=== PATIENT | female | born 1960 | race Caucasian/White ===

== ENCOUNTER 2020-07-19 10:31 | Emergency (ER) | payer BC ==
[~2020-07-19] VITALS: Ht 149.9 cm; Wt 77.4 kg
[2020-07-19] MEDS ORDERED: IOHEXOL 350 MG/ML 100 ML VIAL. IV ONE (11:00)
[2020-07-19 11:03] LABS: BASO # 0.1 x10^3/uL (0.0-0.2); BASO % 0 % (0-3); EOS # 0.1 x10^3/uL (0.0-0.7); EOS % 0 % (0-3); HEMATOCRIT 27.7 % (36.0-47.0); HEMOGLOBIN 8.9 g/dL (12.0-15.5); LYMPH # 1.7 x10^3/uL (1.0-4.8); LYMPH % 9 % (24-48); MEAN CORPUSCULAR HEMOGLOBIN 28 pg (25-35); MEAN CORPUSCULAR HGB CONC 32 g/dL (31-37); MEAN CORPUSCULAR VOLUME 85 fL (79-100); MONO # 1.8 x10^3/uL (0.0-1.1); MONO % 10 % (0-9); NEUT # 15.1 x10^3uL (1.8-7.7); NEUT % 81 % (31-73); PLATELET COUNT 448 x10^3/uL (140-400); RED BLOOD COUNT 3.24 x10^6/uL (3.50-5.40); WHITE BLOOD COUNT 18.7 x10^3/uL (4.0-11.0)
[2020-07-19 11:10] LABS: CALCIUM 8.8 mg/dL (8.5-10.1); CREATININE 1.3 mg/dL (0.6-1.0); GFR 41.9; POTASSIUM 3.1 mmol/L (3.5-5.1)
--- NOTE | 2020-07-19 11:10 | RAD ---
EXAM: CHEST AP ONLY INDICATION: Reason: shob / Spl. Instructions: / History: . TECHNIQUE: Single view COMPARISON: None FINDINGS: The heart size is upper normal. The great vessels appear unremarkable. There is no hilar or mediastinal mass. Lungs are low in volume and show patchy bilateral airspace opacities, subpleral sparing There is no pleural effusion or pneumothorax. There are no significant osseous abnormalities. IMPRESSION: 1. Bilateral patchy airspace opacities with subpleural sparing. This is a nonspecific appearance and could reflect pulmonary hemorrhage, edema, atypical infection, or infarction (such as from embolic phenomenon). 2. If there is a high index of suspicion for pulmonary emboli, CT pulmonary angiography could be pursued in further evaluation. FOR INTERNAL CODING PURPOSES Critical result: Findings discussed with ESTUARDO BRO at 07/19/2020 11:06 AM. RESULT CODE: (C) . Electronically signed by: Vinay Josue MD (07/19/2020 11:07 AM) [id number]
[2020-07-19] MEDS ORDERED: FUROSEMIDE 40 MG/4 ML VIAL IVP ONE ×2 (11:15→12:30)
[2020-07-19] MEDS ORDERED: SUCCINYLCHOLINE 200 MG/10 ML VIAL. ONE (11:15)
[2020-07-19 11:25] LABS: ALBUMIN 2.3 g/dL (3.4-5.0); ALBUMIN/GLOBULIN RATIO 0.5 (1.0-1.7); TOTAL BILIRUBIN 0.4 mg/dL (0.2-1.0); TOTAL PROTEIN 6.9 g/dL (6.4-8.2)
--- NOTE | 2020-07-19 11:47 | PHYS DOC ---
Past History Past Medical History: Diabetes, Hypertension Past Surgical History: Cholecystectomy, , Other Additional Past Surgical Histo: right shoulder Alcohol Use: Rarely Adult General Chief Complaint Chief Complaint: SHORTNESS OF BREATH [facility] HPI Patient is a 59-year-old female who presents for dyspnea. Onset was approx imately 48 hours ago without any known inciting event and/or trauma Nothing known makes better or worse. Patient denies any chest pain but just reports consistent feelings of dyspnea and inability to take a deep breath. Timing of symptoms has been constant and worsening since onset. Patient has extensive medical history but is a poor historian due to dyspnea, is only able to converse in few word sentences. States she has history of diabetes, obesity, hypertension, had recent right shoulder surgery 6 days ago, and has an unknown coagulopathy for which she receives monthly IV infusions for. She reports having an unknown surgery on right shoulder (rotator cuff?) At a local facility on Thursday and deferred anticoagulation after said procedure knowing the risks of potential blood clot. She denies any known COVID-19 contact but has been in the local community getting groceries etc. Denies any fevers, no chest pain but admits chest pressure. No abdominal symptoms or changes in bladder or bowel function. Denies any hemoptysis, no hormone use, no long distance travel, no history of DVT or PE Review of Systems Review of Systems Fourteen body systems of review of systems have been reviewed. See HPI for pertinent positives and negative responses, other shah all other systems are negative, non-pertinent or non-contributory Current Medications Current Medications Current Medications Medications (Trade) Dose Ordered Sig/Ayleen Start Time Stop Time Status Last Admin Dose Admin Furosemide (Lasix) 80 mg 1X ONCE 07/19/20 11:15 07/19/20 11:17 DC Iohexol (Omnipaque 350 Mg/ml) 100 ml 1X ONCE 07/19/20 11:00 07/19/20 11:02 DC Succinylcholine Chloride (Anectine) 200 mg STK-MED ONCE 07/19/20 11:15 07/19/20 11:16 DC Allergies Allergies Allergies Coded Allergies Type Severity Reaction Last Updated Verified levofloxacin Allergy Unknown 07/19/20 Yes Uncoded Allergies Type Severity Reaction Last Updated Verified SULFA Allergy Unknown 07/19/20 Physical Exam Physical Exam Constitutional: Toxic appearing, in overt respiratory distress with oxygen sa turation 50% on arrival, obese, tripoding at bedside HENT: Normocephalic, atraumatic, bilateral external ears normal, oropharynx moist, no oral exudates, nose normal. Eyes: PERRLA, EOMI, conjunctiva normal, no discharge. Neck: Normal range of motion, no tenderness, supple, no stridor. Cardiovascular: Heart rate regular, sinus rhythm, no murmurs rubs or gallops Lungs & Thorax: Overt respiratory distress, accessory muscle usage noted in neck and chest, diffuse rhonchi bilaterally Abdomen: Bowel sounds normal, soft, no tenderness, no masses, no pulsatile masses. Nonsurgical abdomen, no peritoneal signs Skin: Warm, dry, no erythema, no rash. Back: No tenderness, no CVA tenderness. Extremities: Appropriate right upper extremity tenderness status post surgery 6 days prior in right arm sling, no cyanosis, no clubbing, ROM intact, no edema. Neurologic: Alert and oriented X 3, grossly normal motor & sensory function, no focal deficits noted. Psychologic: Affect normal, judgement normal, anxious mood Current Patient Data Vital Signs Vital Signs Date Time Temp Pulse Resp B/P (MAP) Pulse Ox O2 Delivery O2 Flow Rate FiO2 07/19/20 11:15 93 133/67 (89) 87 15.0 07/19/20 10:31 98.4 39 Room Air Lab Results Laboratory Tests Test 07/19/20 10:40 White Blood Count 18.7 x10^3/uL (4.0-11.0) H Red Blood Count 3.24 x10^6/uL (3.50-5.40) L Hemoglobin 8.9 g/dL (12.0-15.5) L Hematocrit 27.7 % (36.0-47.0) L Mean Corpuscular Volume 85 fL (79-100) Mean Corpuscular Hemoglobin 28 pg (25-35) Mean Corpuscular Hemoglobin Concent 32 g/dL (31-37) Red Cell Distribution Width 16.0 % (11.5-14.5) H Platelet Count 448 x10^3/uL (140-400) H Neutrophils (%) (Auto) 81 % (31-73) H Lymphocytes (%) (Auto) 9 % (24-48) L Monocytes (%) (Auto) 10 % (0-9) H Eosinophils (%) (Auto) 0 % (0-3) Basophils (%) (Auto) 0 % (0-3) Neutrophils # (Auto) 15.1 x10^3uL (1.8-7.7) H Lymphocytes # (Auto) 1.7 x10^3/uL (1.0-4.8) Monocytes # (Auto) 1.8 x10^3/uL (0.0-1.1) H Eosinophils # (Auto) 0.1 x10^3/uL (0.0-0.7) Basophils # (Auto) 0.1 x10^3/uL (0.0-0.2) Platelet Estimate Pending Prothrombin Time 11.0 SEC (9.4-11.4) Prothrombin Time INR 1.1 (0.9-1.1) D-Dimer (Reba) 3.57 mg/L (0.00-0.50) H Sodium Level 140 mmol/L (136-145) Potassium Level 3.1 mmol/L (3.5-5.1) L Chloride Level 101 mmol/L (98-107) Carbon Dioxide Level 24 mmol/L (21-32) Anion Gap 15 (6-14) H Blood Urea Nitrogen 9 mg/dL (7-20) Creatinine 1.3 mg/dL (0.6-1.0) H Estimated GFR (Cockcroft-Gault) 41.9 BUN/Creatinine Ratio 7 (6-20) Glucose Level 199 mg/dL (70-99) H Lactic Acid Level 4.4 mmol/L (0.4-2.0) *H Calcium Level 8.8 mg/dL (8.5-10.1) Magnesium Level 2.0 mg/dL (1.8-2.4) Total Bilirubin 0.4 mg/dL (0.2-1.0) Aspartate Amino Transferase (AST) 71 U/L (15-37) H Alanine Aminotransferase (ALT) 50 U/L (14-59) Alkaline Phosphatase 255 U/L (46-116) H Troponin I Quantitative < 0.017 ng/mL (0-0.055) EW-Zxc-[id number]-Type Natriuretic Peptide 2917 pg/mL (0-124) H Total Protein 6.9 g/dL (6.4-8.2) Albumin 2.3 g/dL (3.4-5.0) L Albumin/Globulin Ratio 0.5 (1.0-1.7) L EKG EKG EKG ordered and interpreted by myself at 1116 hrs. as sinus rhythm at 93 bpm, unremarkable intervals besides prolonged QTC at 475, no axis deviation, no acute ischemic findings, no STEMI Radiology/Procedures Radiology/Procedures PROCEDURE: CHEST AP ONLY EXAM: CHEST AP ONLY INDICATION: Reason: shob / Spl. Instructions: / History: . TECHNIQUE: Single view COMPARISON: None FINDINGS: The heart size is upper normal. The great vessels appear unremarkable. There is no hilar or mediastinal mass. Lungs are low in volume and show patchy bilateral airspace opacities, subpleral sparing There is no pleural effusion or pneumothorax. There are no significant osseous abnormalities. IMPRESSION: 1. Bilateral patchy airspace opacities with subpleural sparing. This is a nonspecific appearance and could reflect pulmonary hemorrhage, edema, atypical infection, or infarction (such as from embolic phenomenon). 2. If there is a high index of suspicion for pulmonary emboli, CT pulmonary angiography could be pursued in further evaluation. PROCEDURE: CHEST AP ONLY EXAM: CHEST AP ONLY INDICATION: Reason: intubation / Spl. Instructions: / History: . TECHNIQUE: Single view COMPARISON: Earlier same day chest x-ray FINDINGS: Interval endotracheal intubation. ET tube terminates in the right mainstem bronchus approximately 3.3 cm above the berenice. An enteric tube has been placed as well, tip passing below the diaphragms. The heart size is normal. The great vessels appear unremarkable. There is no hilar or mediastinal mass. Lung volumes are low but show interval improvement in the left lung.. Patchy airspace opacities remain present bilaterally, now greater on the right. There is no pleural effusion or pneumothorax. There are no significant osseous abnormalities. IMPRESSION: 1. Interval endotracheal intubation with tip in the right mainstem bronchus. Recommend retraction 3 to 4 cm for improved positioning relative to the berenice. 2. Interval improvement in lung aeration with residual bilateral patchy airspace opacities. PROCEDURE: CT ANGIOGRAPHY CHEST CT ANGIOGRAPHY CHEST INDICATION: sob, tachypnea, INTUBATED . Comparison: Radiograph 07/19/2020. TECHNIQUE: Following the uneventful administration of intravenous contrast, 75 cc Omnipaque 350, axial CT sections were obtained through the lungs and upper abdomen. Multiplanar reconstructions and MIP images were obtained. PQRS compliance statement: One or more of the following individualized dose reduction techniques were utilized for this examination: 1. Automated exposure control 2. Adjustment of the mA and/or kV according to patient size 3. Use of iterative reconstruction technique FINDINGS: Radiograph 07/19/2020 Endotracheal tube with tip in the proximal right mainstem bronchus. Enteric tube courses into the stomach and beyond the inferior [id number]. Lungs and Airways: Diffuse bilateral ground glass opacities and consolidations. Pleura: Small bilateral pleural effusions. Heart and Mediastinum: The visualized thyroid is normal in size and attenuation. No axillary or supraclavicular lymphadenopathy. Mildly enlarged mediastinal lymph nodes. Cardiomegaly. No pericardial effusion. The great vessels of the thorax are normal. Abdomen: Cholecystectomy. Bones and Soft Tissues: The visualized bones and chest wall soft tissues are within normal limits. IMPRESSION: 1. No evidence of pulmonary thromboembolic disease. 2. Extensive bilateral groundglass opacities and consolidations, likely multifocal infection or edema. 3. Small bilateral pleural effusions. 4. Endotracheal intubation, with tip in the proximal right mainstem bronchus, as discussed on recent chest radiograph. Enteric tube courses into the stomach. Electronically signed by: Marco A Emery MD (07/19/2020 12:49 PM) [id number] Heart Score HEART Score for Chest Pain: HEART Score for Chest Pain Response (Comments) Value History Moderately Suspicious 1 ECG Nonspecific Repolarizatio 1 Age >45 - < 65 1 Risk Factors >3 Risk Factors or Hx CAD 2 Troponin < Normal Limit 0 Total 5 Risk Factors: Risk Factors: DM, Current or recent (<one month) smoker, HTN, HLP, family history of CAD, obesity. Risk Scores: Risk Factors: DM, Current or recent (<one month) smoker, HTN, HLP, family history of CAD, obesity. Course & Med Decision Making Course & Med Decision Making Pertinent Labs and Imaging studies reviewed. (See chart for details) Airway patent, in obvious respiratory distress, vital signs remarkable for overt hypoxia Patient high risk for PE given recent surgery 6 days ago and history of unknown coagulopathy. Has not been on any blood thinners. No COVID-19 contact or other constitutional symptoms such as fever. at bedside and confirmed patient is a full code Attempts were made to improve patient's respiratory status administering 80 mg IV Lasix and 125 Solu-Medrol without significant relief. Attempts to reposition patient and provide other modes of oxygenation did not improve patient's status either Discussed patient case with as patient did not have full capacity to make her own medical decisions. Discussed elective intubation prior to having to emergently intubate patient, agreed. Patient was intubated on first attempt without issue Patient initially intubated deep, tube was withdrawn approximately 4 cm and continued having issues keeping O2 saturations greater than 90%. It was found that tube was still deep and after withdrawing approximately 2 more centimeters and increasing PEEP resolved condition Dr. Blackwell at [facility] was contacted and case discussed, he help troubleshoot issues above regarding patient's issues while on mechanical ventilation. He also agreed to transfer to his facility for higher acuity of care I discussed most recent CT Angio negative for pulmonary embolism but concerning for infectious cause. 2 g Rocephin administered. Patient stabilized prior to air transportation to [facility] for higher acuity of care. All questions and concerns had were answered prior to transport in critical but stable condition Critical Care Time This patient required critical care. Due to the fact that the patient required a significant amount of one on one physician - patient contact time, ordering and review of studies, arranging urgent treatment with development of a management plan, evaluation of patients response to treatment with frequent reassessments, and discussions with other providers this patient required critical care time in excess of 30 minutes. Critical care time was indicated due to the inherent instability and/or potential for instability in this patient. The critical care time that is allocated to this patient is above and beyond any time spent on any other billable procedures performed on this patient. Dragon Disclaimer Dragon Disclaimer This electronic medical record was generated, in whole or in part, using a voice recognition dictation system. Intubation Procedure Intub Indication: Respiratory failure, failure to oxygenate Consent: Verbally. Obtained by as patient did not have capacity to make this decision Medications Used: 30 mg etomidate and 100 mg succinylcholine Procedure: The patient was placed in the supine position. Intubation was performed using a size 3 glidoscope and a 7.5 endotracheal tube, this was initially placed at 24 at the lips. Initial confirmation of placement included positive CO2 change, increased pulse ox saturations, and breath sounds heard in bilateral chest. A chest x-ray to verify correct placement of the tube was performed showing ET tube in appropriate position but deep with recommendations to withdraw approximately 4 cm The patient tolerated the procedure without any observed and/or reported issues. Endotracheal tube was placed to deep, this was removed once. After CT angio confirming persistently deep ET tube this was pulled out approximately 2 cm again which resolved and improved oxygenation and ventilation status Departure Departure: Impression: Primary Impression: Respiratory failure with hypoxia Additional Impressions: Multifocal pneumonia Person under investigation for COVID-19 History of coagulopathy Disposition: 02 DC/TRF OTHER SHORT TERM HOS ([facility]) Admitting Physician: Other (Dr. Blackwell) Condition: STABLE Referrals: SERENA RODGERS MD (PCP) Problem Qualifiers ESTUARDO BRO DO Jul 19, 2020 11:46
[2020-07-19] MEDS ORDERED: PROPOFOL 100 ML IV ONE (11:49)
[2020-07-19] MEDS ORDERED: PROPOFOL 100 ML IV PRN ×2 (12:00)
[2020-07-19] MEDS ORDERED: MIDAZOLAM HCL PF 5 MG/5 ML VIAL. ONE ×2 (12:09→13:00)
--- NOTE | 2020-07-19 12:13 | RAD ---
EXAM: CHEST AP ONLY INDICATION: Reason: intubation / Spl. Instructions: / History: . TECHNIQUE: Single view COMPARISON: Earlier same day chest x-ray FINDINGS: Interval endotracheal intubation. ET tube terminates in the right mainstem bronchus approximately 3.3 cm above the berenice. An enteric tube has been placed as well, tip passing below the diaphragms. The heart size is normal. The great vessels appear unremarkable. There is no hilar or mediastinal mass. Lung volumes are low but show interval improvement in the left lung.. Patchy airspace opacities remain present bilaterally, now greater on the right. There is no pleural effusion or pneumothorax. There are no significant osseous abnormalities. IMPRESSION: 1. Interval endotracheal intubation with tip in the right mainstem bronchus. Recommend retraction 3 to 4 cm for improved positioning relative to the berenice. 2. Interval improvement in lung aeration with residual bilateral patchy airspace opacities. FOR INTERNAL CODING PURPOSES Critical result: Findings discussed with ESTUARDO BRO at 07/19/2020 12:10 PM. RESULT CODE: (C) Electronically signed by: Vinay Josue MD (07/19/2020 12:10 PM) [id number]
[2020-07-19 12:24] LABS: % LYMPHS 5 % (24-48); % MONOS 11 % (0-10); % SEGS 84 % (35-66)
[2020-07-19 12:25] LABS: PLT ESTIMATE ADEQUATE (ADEQUATE)
--- NOTE | 2020-07-19 12:43 | EKG ---
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
--- NOTE | 2020-07-19 12:52 | RAD ---
CT ANGIOGRAPHY CHEST INDICATION: sob, tachypnea, INTUBATED . Comparison: Radiograph 07/19/2020. TECHNIQUE: Following the uneventful administration of intravenous contrast, 75 cc Omnipaque 350, axial CT sections were obtained through the lungs and upper abdomen. Multiplanar reconstructions and MIP images were obtained. RS compliance statement: One or more of the following individualized dose reduction techniques were utilized for this examination: 1. Automated exposure control 2. Adjustment of the mA and/or kV according to patient size 3. Use of iterative reconstruction technique FINDINGS: Radiograph 07/19/2020 Endotracheal tube with tip in the proximal right mainstem bronchus. Enteric tube courses into the stomach and beyond the inferior [id number]. Lungs and Airways: Diffuse bilateral ground glass opacities and consolidations. Pleura: Small bilateral pleural effusions. Heart and Mediastinum: The visualized thyroid is normal in size and attenuation. No axillary or supraclavicular lymphadenopathy. Mildly enlarged mediastinal lymph nodes. Cardiomegaly. No pericardial effusion. The great vessels of the thorax are normal. Abdomen: Cholecystectomy. Bones and Soft Tissues: The visualized bones and chest wall soft tissues are within normal limits. IMPRESSION: 1. No evidence of pulmonary thromboembolic disease. 2. Extensive bilateral groundglass opacities and consolidations, likely multifocal infection or edema. 3. Small bilateral pleural effusions. 4. Endotracheal intubation, with tip in the proximal right mainstem bronchus, as discussed on recent chest radiograph. Enteric tube courses into the stomach. Electronically signed by: Marco A Emery MD (07/19/2020 12:49 PM) [id number]
[2020-07-19] MEDS ORDERED: methylPREDNISolone SOD SUCC PF 125 MG/2 ML VIAL. ONE (12:56)
[2020-07-19] MEDS ORDERED: IV NORMAL SALINE 100ML 100 ML ONE (12:57)
[2020-07-19] MEDS ORDERED: VECURONIUM 10 MG VIAL. IV ONE (13:00)
[2020-07-19] MEDS ORDERED: ETOMIDATE 40 MG/20 ML VIAL. ONE (13:00)
[2020-07-19 13:12] LABS: BGAS PH 7.45 (7.35-7.45)
[2020-07-19 13:13] LABS: BGAS PH 7.32 (7.35-7.45)
[2020-07-19 13:47] VITALS: BP 129/63
--- NOTE | 2020-07-20 15:25 | NUR ---
IP: notified nurse Christa of COVID result.
== END 2020-07-19 15:01 | disposition short-term general hospital (02) ==
LOC: EDBD 10:31 → ER 10:31
DX: J96.91 Respiratory failure, unspecified with hypoxia (principal); J18.8 Other pneumonia, unspecified organism; D68.9 Coagulation defect, unspecified; Z20.828 Contact with and (suspected) exposure to other viral communicable diseases; E11.9 Type 2 diabetes mellitus without complications; I10 Essential (primary) hypertension; Z90.49 Acquired absence of other specified parts of digestive tract; Z98.890 Other specified postprocedural states; Z88.1 Allergy status to other antibiotic agents
CPT/HCPCS: 31500; 36415; 36600; 71045; 71275; 80053; 82550; 82803; 83605; 83735; 83880; 84484; 85007; 85025; 85379; 85610; 93005; 96365; 99291; C9803; J0696; J2250; J2704; Q9967; U0003; 94002